=== PATIENT | female | born 1945 | race Caucasian/White ===

== ENCOUNTER → 2024-12-31 13:50 | Outpatient (CLI) | payer OTHER, SELFPAY ==
--- NOTE | 2024-12-31 13:56 | EKG_ITS ---
[place] [address] [address] [place] [id number] Test Date: 2024-12-31 Pat Name: Matt Palomo Department: [facility] Room: Gender: Female Uniform Designer: SHAZIA : 1945 Requested By: Order Number: [id number] Reading MD: Cornelius Day MD Measurements Intervals [place] Rate: 58 P: 74 SD: 152 QRS: 34 QRSD: 76 T: 40 QT: 406 QTc: 398 Interpretive Statements Sinus bradycardia with premature atrial complexes Electronically Signed On 01-01-2025 7:31:22 PDT by Cornelius Day MD
[2024-12-31 14:39] LABS: Add Manual Diff / Slide Review NO; Basophils Absolute Auto 100 /uL (0-100); Basophils Percent Auto 1.1 % (0-2); Eosinophils Absolute Auto 300 /uL (0-450); Hematocrit 34.9 % (36-46); Lymphocytes Absolute Auto 1400 /uL (1100-4500); Lymphocytes Percent Auto 25.3 % (25-40); Mean Corpuscular HGB Conc 34.3 % (30-36); Mean Corpuscular Hemoglobin 32.7 PG (26-34); Mean Corpuscular Volume 95.3 fL (80-100); Monocytes Absolute Auto 400 /uL (0-900); Monocytes Percent Auto 7.4 % (3-14); Neutrophils Absolute Auto 3400 /uL (1500-7000); Neutrophils Percent Auto 61.2 % (50-75); Platelet Count 200 X10^3/uL (150-400); Red Blood Cell Count 3.67 X10^6/uL (4.0-5.2); White Blood Cell Count 5.5 X10^3/uL (4.5-11.0)
[2024-12-31 14:48] LABS: Prothrombin Time 11.4 SECONDS (9.4-12.5)
[2024-12-31 14:51] LABS: PTT Partial Thromboplastin Tim 29 SECONDS (25.1-36.5)
[2024-12-31 15:00] LABS: BUN Creatinine Ratio 20.9 (6-22); Blood Urea Nitrogen 24 mg/dL (7-17); Calcium 9.7 mg/dL (8.4-10.2); Carbon Dioxide 26 mmol/L (22-32); Chloride 105 mmol/L (98-107); Estimated Glomerular Filt Rate 49 mL/min (>60); Glucose 129 mg/dL (70-99); HEMOLYSIS < 15 (0-50); Potassium 4.5 mmol/L (3.4-5.1); Sodium 140 mmol/L (137-145)
== END ==
PROVIDERS: PCP Nurse Practitioner Family; Referring Provider Orthopaedic Surgery; Visit Provider Orthopaedic Surgery
DX: Z01.818 Encounter for other preprocedural examination (principal); Z51.81 Encounter for therapeutic drug level monitoring; Z01.812 Encounter for preprocedural laboratory examination
CPT/HCPCS: 36415; 80048; 85025; 85610; 85730; 93005; 93010